=== PATIENT | male | born 1990 | race American Indian/Alaskan Native ===

== ENCOUNTER 2019-08-26 16:38 | Emergency (ER) | payer MEDICAID, OTHER ==
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
== END 2019-08-26 18:14 | disposition home or self-care (01) ==
LOC: MW.ED 16:38
DX: S16.1XXA Strain of muscle, fascia and tendon at neck level, initial encounter (principal); M62.830 Muscle spasm of back; Z79.01 Long term (current) use of anticoagulants; V89.2XXA Person injured in unspecified motor-vehicle accident, traffic, initial encounter
CPT/HCPCS: 36415; 70450; 70450-26; 72125; 72125-26; 85610; 99284; 99284-25